=== PATIENT | male | born 1980 | race Caucasian/White ===

== ENCOUNTER → 2017-10-26 | Outpatient (CLI) | payer OTHER ==
[~2017-10-26] MED LIST: LISINOPRIL 10MG10 MG PO; MEDROL 4MG. DOSE4 MG PO; NOMEDS XX; TAMIFLU 75MG CA75 MG PO; VICODIN 5/500 T1 TAB PO
[2017-10-26 10:22] LABS: LYMPH # 1.9 K/mm3 (0.7-4.5); LYMPH % 29.4 % (10-50)
[2017-10-26 11:12] LABS: BUN 23 mg/dL (7-18)
[2017-10-26 11:37] LABS: GFR (ESTIMATED) 75 ML/MIN (>60)
== END ==
LOC: LAB 10:02
PROVIDERS: Nurse Practitioner Family
DX: I10 Essential (primary) hypertension (principal); E78.2 Mixed hyperlipidemia